=== PATIENT | male | born 1965 | race Caucasian/White ===

== ENCOUNTER → 2017-02-04 | Outpatient (CLI) | payer OTHER ==
[~2017-02-04] MED LIST: CYAN100020 PO; LISI20TA3 PO; MULT-506 PO; OMEG12006 PO; OMEP40CA41 PO; ONDA4TAB10 SL; PRLSR20 PO
--- NOTE | 2017-02-05 07:49 | EXERCISE STRESS TEST ---
DATE OF PROCEDURE: 02/04/2017. INDICATIONS FOR STRESS TESTING: Chest discomfort. This was a symptom limited maximal treadmill stress test performed on the Stanton protocol. During the test there were no symptoms of chest discomfort. The test was terminated due to fatigue and leg tiredness. The exercise duration was 9 minutes 30 seconds, the heart rate reached 169 beats per minute (102% of the predicted maximal heart rate). During the stress test ST depression was observed, the maximum ST depression occurred at peak exercise where 1.8 mm of slightly upsloping ST depression was present in lead 2. Close to that was also present in leads 3 and AVF and approaching 1 mm in V5. During recovery this ST depression quickly resolved, within 1 minute of recovery there was no ST depression either inferior or the lateral precordial leads. The patient remained on the machine for 6 minutes with no return of ST depression. There was no arrhythmia noted during the test. IMPRESSION: Abnormal stress test with development of significant ST depression, however there were no symptoms associated with it and there was very rapid resolution of the ST depression during recovery. This may indicate a false positive.
== END | disposition home or self-care (01) ==
LOC: C.CPL 09:23
PROVIDERS: ATTEND Physician Assistant
DX: I44.0 Atrioventricular block, first degree (principal); I10 Essential (primary) hypertension; R07.89 Other chest pain

== ENCOUNTER 2017-04-27 02:18 | Emergency (ER) | payer OTHER ==
[~2017-04-27] VITALS: Ht 180.3 cm; Wt 101.3 kg
[~2017-04-27 02:18] MED LIST changes: -CYAN100020 PO; -LISI20TA3 PO; -MULT-506 PO; -OMEP40CA41 PO; -ONDA4TAB10 SL
[2017-04-27 02:21] VITALS: TEMP 36.4; Ht 180.3 cm; Wt 101.3 kg
[2017-04-27] MEDS ORDERED: SODIUM CHLORIDE 0.9% 1000ML 1,000 ML IV STA (02:30)
[2017-04-27] MEDS ORDERED: ONDANSETRON INJ 2 MG/ML 2 ML VIAL IV STA ×2 (02:30→03:25)
[2017-04-27 02:32] VITALS: O2SAT 99
[2017-04-27] MEDS ORDERED: OMEP40CA41 PO (02:39)
[2017-04-27] MEDS ORDERED: LISI20TA3 PO (02:39)
[2017-04-27] MEDS ORDERED: MULT-506 PO (02:40)
[2017-04-27] MEDS ORDERED: CYAN100020 PO (02:40)
[2017-04-27 02:41] LABS: BASO % 0.3 %; BASO ABS # 0.03 K/uL (0-0.2); COMPLETE YES; HEMATOCRIT 45.1 % (42-52); IG% 0.6 %; LYMPH % 46.5 %; LYMPH ABS # 4.85 K/uL (1.2-3.4); MEAN CELL VOLUME 88.1 fL (80-100); MEAN CORPUSCULAR HEMOGLOBIN 30.9 pg (25-34); MEAN PLATELET VOLUME 9.3 fL (7.4-10.4); MONO % 8.4 %; NEUT % 42.2 %; PLATELET COUNT 303 K/uL (130-400); RED BLOOD COUNT 5.12 M/uL (4.7-6.1); WHITE BLOOD COUNT 10.42 K/uL (4.8-10.8)
--- NOTE | 2017-04-27 02:59 | EMERGENCY ROOM VISIT NOTE ---
History Report prepared by Felipe: Hai Aj Under the Supervision of: Dr. Mike Toro D.O. First contact with patient: 02:20 Chief Complaint: WEAKNESS Stated Complaint: WEAKNESS History of Present Illness The patient is a 51 year old male who presents to the Emergency [facility] after sudden onset vomiting and nausea this morning, that began shortly prior to arrival. The patient states that he woke up out of sleep this evening due to his nausea. He also complains of feeling like he was going to pass out, but he did not experience any syncope. He denies any associated chest pain, shortness of breath, headaches, or diarrhea. Source of History: patient Onset: Shortly ASSISTANT FINANCE MANAGER Position: other () Quality: other (Vomiting) Timing: other (Sudden Onset) Associated Symptoms: + nausea, No chest pain, No SOB Review of Systems See HPI for pertinent positives and negatives. A total of ten systems were reviewed and were otherwise negative. Past Medical & Surgical Medical Problems: (1) Hypertension Hypertension Family History Hypertension Social History Smoking Status: Never Smoker Drug Use: none Marital Status: Housing Status: lives with significant other Occupation Status: employed Current/Historical Medications Scheduled Cyanocobalamin (Vitamin B12), 1,000 MCG PO DAILY Lisinopril (Prinivil), 20 MG PO DAILY Multivitamin (Multivitamin), 1 TAB PO DAILY Lancaster-3 Fatty Acids ([place] 3), 1 CAP PO DAILY Omeprazole (Prilosec), 40 MG PO DAILY Allergies Coded Allergies: No Known Allergies (Unverified , 04/27/17) Physical Exam Vital Signs Date Time Temp Pulse Resp B/P (MAP) Pulse Ox O2 Delivery O2 Flow Rate FiO2 04/27/17 02:32 99 Room Air 04/27/17 02:28 71 04/27/17 02:21 36.4 67 18 124/92 95 Room Air Physical Exam GENERAL: Awake, alert, well-appearing, in no distress HENT: Normocephalic, atraumatic. Oropharynx unremarkable. EYES: Normal conjunctiva. Sclera non-icteric. NECK: Supple. No nuchal rigidity. FROM. No JVD. RESPIRATORY: Clear to auscultation. CARDIAC: Regular rate, normal rhythm. Extremities warm and well perfused. Pulses equal. ABDOMEN: Soft, non-distended. No tenderness to palpation. No rebound or guarding. No masses. RECTAL: Deferred. MUSCULOSKELETAL: Chest examination reveals no tenderness. The back is symmetrical on inspection without obvious abnormality. There is no CVA tenderness to palpation. No joint edema. LOWER EXTREMITIES: Calves are equal size bilaterally and non-tender. No edema. No discoloration. NEURO: Normal sensorium. No sensory or motor deficits noted. SKIN: No rash or jaundice noted. Medical Decision & Procedures Laboratory Results 04/27/17 02:15 Red Blood Count 5.12, Mean Corpuscular Volume 88.1, Mean Corpuscular Hemoglobin 30.9, Mean Corpuscular Hemoglobin Concent 35.0, Mean Platelet Volume 9.3, Neutrophils (%) (Auto) 42.2, Lymphocytes (%) (Auto) 46.5, Monocytes (%) (Auto) 8.4, Eosinophils (%) (Auto) 2.0, Basophils (%) (Auto) 0.3, Neutrophils # (Auto) 4.39, Lymphocytes # (Auto) 4.85, Monocytes # (Auto) 0.88, Eosinophils # (Auto) 0.21, Basophils # (Auto) 0.03 04/27/17 02:15 Test 04/27/17 02:15 White Blood Count 10.42 K/uL (4.8-10.8) Red Blood Count 5.12 M/uL (4.7-6.1) Hemoglobin 15.8 g/dL (14.0-18.0) Hematocrit 45.1 % (42-52) Mean Corpuscular Volume 88.1 fL (80-100) Mean Corpuscular Hemoglobin 30.9 pg (25-34) Mean Corpuscular Hemoglobin Concent 35.0 g/dl (32-36) Platelet Count 303 K/uL (130-400) Mean Platelet Volume 9.3 fL (7.4-10.4) Neutrophils (%) (Auto) 42.2 % Lymphocytes (%) (Auto) 46.5 % Monocytes (%) (Auto) 8.4 % Eosinophils (%) (Auto) 2.0 % Basophils (%) (Auto) 0.3 % Neutrophils # (Auto) 4.39 K/uL (1.4-6.5) Lymphocytes # (Auto) 4.85 K/uL (1.2-3.4) Monocytes # (Auto) 0.88 K/uL (0.11-0.59) Eosinophils # (Auto) 0.21 K/uL (0-0.5) Basophils # (Auto) 0.03 K/uL (0-0.2) RDW Standard Deviation 42.0 fL (36.4-46.3) RDW Coefficient of Variation 13.1 % (11.5-14.5) Immature Granulocyte % (Auto) 0.6 % Immature Granulocyte # (Auto) 0.06 K/uL (0.00-0.02) Anion Gap 10.0 mmol/L (3-11) Est Creatinine Clear Calc Drug Dose 94.1 ml/min Estimated GFR () 88.4 Estimated GFR (Non- 76.2 BUN/Creatinine Ratio 14.8 (10-20) Calcium Level 9.1 mg/dl (8.5-10.1) Magnesium Level 1.9 mg/dl (1.8-2.4) Total Bilirubin 0.6 mg/dl (0.2-1) Direct Bilirubin < 0.1 mg/dl (0-0.2) Aspartate Amino Transf (AST/SGOT) 20 U/L (15-37) Alanine Aminotransferase (ALT/SGPT) 31 U/L (12-78) Alkaline Phosphatase 92 U/L (45-117) Total Protein 7.3 gm/dl (6.4-8.2) Albumin 3.8 gm/dl (3.4-5.0) Lipase 85 U/L (73-393) Laboratory results reviewed by me Medications Administered Medications (Trade) Dose Ordered Sig/Ibis Route Start Time Stop Time Status Last Admin Dose Admin Ondansetron HCl (Zofran Inj) 4 mg NOW STAT IV 04/27/17 02:30 04/27/17 02:32 DC 04/27/17 02:41 4 MG Sodium Chloride 1,000 ml @ 999 mls/hr Q1H1M STAT IV 04/27/17 02:30 04/27/17 03:30 04/27/17 02:41 999 MLS/HR ED Course 0226: The patient was evaluated in room B7. A complete history and physical exam was performed. 0230: Ordered Sodium Chloride 1000 mL @ 999 mL/hr IV, Zofran 4 mg IV. 0324: Ordered Potassium Chloride 40 meq PO, Zofran 4 mg IV. 0327: I reevaluated the patient. Discussed results and discharge instructions: he verbalized understanding and agreement. The patient is ready for discharge. Medical Decision Differential Diagnosis includes; gastritis, gastroenteritis, dehydration, electrolyte imbalance. Repeat exam, mild nausea; no pain; discussed eval with patient and family at 330am Impression Primary Impression: Vomiting Additional Impressions: Gastritis Hypokalemia Scribe Attestation The scribe's documentation has been prepared under my direction and personally reviewed by me in its entirety. I confirm that the note above accurately reflects all work, treatment, procedures, and medical decision making performed by me. Departure Information Dispostion Home / Self-Care Prescriptions Ondasetron Odt (ZOFRAN ODT) 4 Mg Tab 4 MG SL Q6H for Nausea, #10 TAB Prov: Mike Toro, DO 04/27/17 Referrals Tamika Edmonds PA-C (PCP) Patient Instructions ED Nausea Vomiting, My [facility] Problem Qualifiers
[2017-04-27 03:04] LABS: ALT/SGPT 31 U/L (12-78); AST/SGOT 20 U/L (15-37); BLOOD UREA NITROGEN 16 mg/dl (7-18); BUN/CREATININE RATIO 14.8 (10-20); CALCIUM 9.1 mg/dl (8.5-10.1); CARBON DIOXIDE 27 mmol/L (21-32); CHLORIDE 103 mmol/L (98-107); GLUCOSE 134 mg/dl (70-99); MAGNESIUM 1.9 mg/dl (1.8-2.4); SODIUM 140 mmol/L (136-145)
[2017-04-27 03:07] LABS: ALKALINE PHOSPHATASE 92 U/L (45-117)
[2017-04-27] MEDS ORDERED: POTASSIUM CHLORIDE 10 MEQ TABCR PO STA ×2 (03:15→03:24)
[2017-04-27] MEDS ORDERED: ONDA4TAB10 SL (03:30)
[2017-04-27 03:52] VITALS: BP 124/92; PULSE 73; O2SAT 99
== END 2017-04-27 03:53 | disposition home or self-care (01) ==
LOC: EDBD 02:18 → C.EDB 02:19
DX: K29.70 Gastritis, unspecified, without bleeding (principal); E87.6 Hypokalemia; R53.1 Weakness; R11.10 Vomiting, unspecified; I10 Essential (primary) hypertension

== ENCOUNTER 2019-06-21 06:59 | Observation (INO) ==
--- NOTE | 2019-06-15 10:46 | Anesthesiology Consultation ---
Date of Service June 15, 2019 Assessment & Plan (1) Encounter for preadmission testing: Chart Review Chart Review: Acceptable Risk for Surgery and Patient NOT seen in Pre Admission Testing Consults Requested none History Surgery Operation Date: 06/21/19 08:10 Proposed Procedures p Laparoscopic Resection Mass Right Lower Quadrant Mass, Possible Open, Possible Bowel Resection - Pascual Alfonso MD Height/Weight Height: 5 ft 11 in Weight: 102.512 kg Allergies Allergy/AdvReac Type Severity Reaction Status Date / Time heparin Allergy Severe BRADYCARDIA/FLUSHED Verified 06/14/19 15:33 ALL OVER Medications Home Medications Medication Instructions Recorded Confirmed Last Taken apixaban 5 mg tablet 5 mg PO BID 06/06/19 06/14/19 Unknown multivitamin 1 tab PO QAM 06/06/19 06/14/19 Unknown omega-3 fatty acids 1,000 mg 1,000 mg PO QAM 06/06/19 06/14/19 Unknown capsule ascorbic acid (vitamin C) [Vitamin 1 g PO QAM 06/14/19 06/14/19 Unknown C] cyanocobalamin (vitamin B-12) 5,000 mcg PO QAM 06/14/19 06/14/19 Unknown esomeprazole magnesium [Nexium] 20 mg PO QAM 06/14/19 06/14/19 Unknown flaxseed oil 1,000 mg PO QAM 06/14/19 06/14/19 Unknown lisinopril 10 mg PO QAM 06/14/19 06/14/19 Unknown red yeast rice 600 mg PO BID 06/14/19 06/14/19 Unknown turmeric 400 mg PO QAM 06/14/19 06/14/19 Unknown Past Medical History Medical History Abdominal mass GERD (gastroesophageal reflux disease) Hiatal hernia Hx of pancreatitis 09/2018 Hypertension MVP (mitral valve prolapse) Osteoarthritis Pulmonary embolism S/P PAMELA AUGUST 2018 (CURRENTLY ON ELIQUIS) Past Family History Family History Uncle Family hx of colon cancer Past Surgical History Surgical History Cyst GROIN CYST EXCISION History of cardiac cath 2005 (NO STENTS) WAS [place]ING IN [place] History of cholecystectomy History of colonoscopy History of esophagogastroduodenoscopy (EGD) History of tonsillectomy Social History Smoking Status: Former smoker Do You Dip or Chew Tobacco: No Smoking End Date: QUIT EARLY Hx Alcohol Use: Yes alcohol intake frequency: holidays/special occasions only Hx Substance Use: No substance use type: does not use Testing Laboratory Results Laboratory Tests 06/08/19 06/08/19 10:30 10:30 WBC 9.58 Hgb 15.6 Hct 43.4 Plt Count 286 Sodium 138 Potassium 3.8 Chloride 103 Carbon Dioxide 28 BUN 18 Creatinine 1.07 Glucose 111 H Electrocardiogram Date: 06/14/19 Findings: + SB @ (47), + IL (septal infarct ), + no change from (27 Apr 2017) and + pertinent finding (1st degree av block) Chest X-Ray Date: 06/14/19 Findings: + NAD
[~2019-06-21 06:59] MED LIST changes: +LR 15ML/HR IV SCH; -OMEG12006 PO; -PRLSR20 PO
[2019-06-21] MEDS ORDERED: fentaNYL citrate 100 MCG/2 ML VIAL ONE ×3 (08:08→12:09)
[2019-06-21] MEDS ORDERED: MIDAZOLAM HCL 1 MG/ML 2ML VIAL ONE (08:08)
[2019-06-21] MEDS ORDERED: ONDANSETRON INJ 2 MG/ML 2 ML VIAL IV PRN ×2 (09:31→13:53)
[2019-06-21] MEDS ORDERED: ATROPINE SULFATE 0.1 MG/ML 10ML SYR IV PRN (09:31)
[2019-06-21] MEDS ORDERED: KETOROLAC 30 MG/ML VIAL IV PRN (09:31)
[2019-06-21] MEDS ORDERED: LABETALOL HCL IV 5 MG/ML 20ML IV PRN (09:31)
--- NOTE | 2019-06-21 09:35 | History & Physical Bridge Note ---
Date of Service June 21, 2019 History & Physical Bridge Note I have examined the patient, reviewed the History & Physical and in the interval since the performance of the History & Physical I have noted the following changes of clinical significance: no changes noted all questions answered states lately had had some dis SO at bedsidecomfort rlq
[2019-06-21] MEDS ORDERED: ACETAMINOPHEN 1000 MG/100 ML IV IV ONE (09:44)
[2019-06-21] MEDS ORDERED: BUPIVACAINE 0.5 % 5 MG/1 ML MPF 30ML VIAL ONE (09:51)
[2019-06-21] MEDS ORDERED: LIDOCAINE HCL 2% 2 ML VIAL/AMP(20MG/ML) INFIL ONE (10:35)
[2019-06-21] MEDS ORDERED: PROPOFOL IV EMULSION 10 MG/ML 20 ML VIAL IV ONE (10:35)
[2019-06-21] MEDS ORDERED: DEXAMETHASONE SOD INJ 4 MG/ML VIAL ONE (10:35)
[2019-06-21] MEDS ORDERED: NEOSTIGMINE METHYLSULFATE 5 MG/5 ML SYR ONE (10:35)
[2019-06-21] MEDS ORDERED: GLYCOPYRROLATE 0.2 MG/ML VIAL ONE (10:35)
[2019-06-21] MEDS ORDERED: ONDANSETRON INJ 2 MG/ML 2 ML VIAL ONE (10:35)
[2019-06-21] MEDS ORDERED: HYDROmorphone INJ 2 MG/ML SYR/VIAL ONE (10:42)
[2019-06-21] MEDS ORDERED: LARYING-O-JET KIT (LTA) ONE (11:49)
--- NOTE | 2019-06-21 12:10 | Post Operative Brief Note ---
PG Immediate Post Op with CF Date of Surgery June 21, 2019 Pre & Post Diagnosis Operation Date: 06/21/19 09:45 Pre-Op Diagnosis: Right Lower Quadrant Abdominal Mass Post-Op Diagnosis: Right Lower Quadrant Abdominal Mass Procedure Operation Date: 06/21/19 09:45 Actual Procedures p Laparoscopy, Open Right Lower Quadrant Mass Resection, Appendectomy(Right) - Pascual Alfonso MD Surgeon Pascual Alfonso MD Hse Specialist b kartik walker Estimated Blood Loss 15 Findings Consistent with Post-Op Diagnosis Specimens Specimen Description: Frozen 1. Mesenteric Node 2. Omental Implant Permanent A. Appendix 1. Urine culture Drains Benton Catheter
--- NOTE | 2019-06-21 12:19 | Operative Report ---
Post Operative Report Pre & Post Diagnosis Operation Date: 06/21/19 09:45 Pre-Op Diagnosis: Right Lower Quadrant Abdominal Mass Post-Op Diagnosis: Right Lower Quadrant Abdominal Mass Procedure Operation Date: 06/21/19 09:45 Actual Procedures p Laparoscopy, Open Right Lower Quadrant Mass Resection, Appendectomy(Right) - Pascual Alfonso MD Patient was brought into the operating theater supine position general endotracheal anesthesia Benton catheter inserted the abdomen was prepped Betadine solution properly draped systemic antibiotics given timeout was had patient was identified point we made a small linear incision above the umbilicus above the transverse incision that the patient had lap chidi Veress needle followed followed by CO2 followed by 5 mm trocar followed by the scope point of entry inspected no injury identified we looked at the abdominal cavity first and the parietoperitoneum there was no evidence of any implants liver was free of any pathology there were no adhesions from previous cholecystectomy the omentum was free of any implants the peritoneum was similarly loose there were no hernias point was able to identify the cecum placed a 5 mm right upper quadrant port with preemptive local analgesic elevated the cecum and there is no obvious pathology the appendix appeared to be at the base grossly normal we at this point place a 5 mm left lower quadrant port placed the camera in that area and then start milking around from the cecum first identified the appendix which was throughout was grossly normal we milked the small bowel looked at the mesenteric for about 3-1/2 4 feet there was no definite evidence evidence of any nodularity that striking except we saw multiple areas that felt like there was some possible pathology in the omentum and the mesentery since the patient has significant amount of fatty tissue we opened a few of these areas by first incising the peritoneum and once we identified the most of this was just indeed fat there were a few areas that once we had freed it up we did find a lymph nodes but they were probably nonpathological probably 0.5 to 0.7cm once we had performed this I felt at this time that I did not see anything abnormal on the outside of the was not able to definitively identify at least by inspection and what I could steal laparoscopically any mass in the omentum since the patient was reading that I had an omental mass 7 cm at the time that he had his laparoscopic cholecystectomy and then increase to about 1.7 cm I elected to make a linear incision up and down the sufficient enough to insert my hand and there we at this point I went back from the cecum exposing the appendix more thoroughly by incising the white line of Toldt then working back palpating throughout the small bowel to about 4 feet there was nothing in the lumen then palpated the mesentery and similarly we felt the same thing with a laparoscopically multiple areas of what appeared to be letter to centimeter masses but mostly was fatty tissue we take about 3 biopsies of these areas and mostly the lymph nodes was minimal at this point I elected then to look at the omentum which we did as we also mobilized the right side of the omentum which was a right lower quadrant area of the right flank area I could feel hard mass as we brought the side of the wound we could feel a indurated area in the omentum probably about 2 cm in size as the freed this up around that we made a small opening in it and small amount of purulent drainage came out and I could see at the bottom there is that there was a bilirubinate stone probably about 3 mm in size with surrounding chronic inflammation we removed this and total incising the omentum around the area. Once this had been accomplished and hemostasis was satisfactory thinking was that trying to patch together the sequence of events the gentleman had a CAT scan prior to having his laparoscopic cholecystectomy which is acutely done in [place] and a CAT scan revealed a point centimeter right lower quadrant mesenteric mass as he had a follow-up CAT scan on that which was done after his goals but gallbladder just about a month or so ago the mass had gone to about 2 cm so I suspect the initial CAT scan showed a lymph node someplace in the mesentery that probably is the same and this new mass was indeed a granuloma around the foreign body from a dropped gal lstone during his laparoscopic cholecystectomy having said this I did not this time I elected to take out the appendix even though grossly was normal there is a remote possibility that we are still missing some of the mesoappendix ligated with 2-0 silk base of the appendix was resected approximately 1 cm from its base the mucosa was bovied and this was inverted a pursestring of 3-0 silk I did send some lymph nodes that we had removed as well centimeter for frozen section and they were nonpathological as we suspected this point the area was checked hemostasis appear satisfactory we closed the fascia with interrupted #1 PDS [id number] subcutaneous tissue 2-0 Vicryl and karen for skin edges dressing was applied procedure was tolerated well estimated blood loss 15 cc addendum Sada walker was present throughout the procedure and helped with exposure retraction and wound closure Surgeon Pascual Alfonso MD Asic Engineer b kartik walker Estimated Blood Loss 15 Findings Consistent with Post-Op Diagnosis Specimens appendix, omental mass mesenteric biopsy Description of Procedure merda I attest to the content of the Intraoperative Record and any orders documented therein. Any exceptions are noted below.
[2019-06-21] MEDS: fentaNYL citrate 100 MCG/2 ML VIAL IV PRN ×4 (12:35→12:50)
[2019-06-21] MEDS ORDERED: HYDROmorphone INJ 1 MG/ML SYRINGE ONE (12:58)
[2019-06-21] MEDS: HYDROmorphone INJ 1 MG/ML SYRINGE IV PRN ×4 (12:58→13:13)
--- NOTE | 2019-06-21 13:26 | Anesthesiology Progress Note ---
Date of Service June 21, 2019 Anesthesia Post Procedure Vital Signs Vital Signs: Temp Pulse Pulse Resp BP BP Pulse Ox 06/21/19 13:15 63 17 127/82 100 06/21/19 13:05 64 11 L 124/81 100 06/21/19 12:55 56 L 10 L 127/87 99 06/21/19 12:45 56 L 12 126/85 06/21/19 12:35 57 L 13 129/89 06/21/19 12:25 55 L 11 L 132/94 06/21/19 12:15 36.1 C L 61 16 128/88 100 06/21/19 07:49 36.7 C 50 L 20 144/93 H 100 Pain Intensity Bilateral Abdomen: Pain Intensity: 7 Transfer of Care Handoff Completed per policy Notes Mental Status: alert / awake / arousable Patient Amnestic to Procedure: Yes Nausea / Vomiting: adequately controlled Pain: adequately controlled Airway Patency, RR, SpO2: stable & adequate BP & HR: stable & adequate Hydration State: stable & adequate Anesthetic Complications: no major complications apparent
[2019-06-21] MEDS: MoRPHine SULFATE 2 MG/ML CARP IV PRN ×2 (14:30→15:23)
[2019-06-21] MEDS: LACTATED RINGER'S 1,000 ML IV SCH ×2 (14:31→22:35)
[2019-06-21] MEDS: MoRPHine SULFATE 4 MG/ML 1 ML CARP\\VIAL IV PRN (19:50)
[2019-06-21] MEDS: OXYCODONE/ACETAMINOPHEN 5mg/325mg TAB PO PRN ×2 (21:13→22:02)
[2019-06-22] MEDS: MoRPHine SULFATE 4 MG/ML 1 ML CARP\\VIAL IV PRN ×2 (00:21→03:10)
[2019-06-22] MEDS: OXYCODONE/ACETAMINOPHEN 5mg/325mg TAB PO PRN ×3 (05:04→14:38)
[2019-06-22 06:55] LABS: Eosinophils # (auto) 0.01 K/uL (0-0.5); Eosinophils % (auto) 0.1 %; Hematocrit (blood only) 38.5 % (42-52); Hemoglobin 13.4 g/dL (14.0-18.0); Immature Granulocytes # (auto) 0.06 K/uL (0.00-0.02); Immature Granulocytes % (auto) 0.4 %; Lymphocytes # (auto) 1.64 K/uL (1.2-3.4); Mean Corpuscular Hemoglobin 31.2 pg (25-34); Mean Corpuscular Hgb Conc 34.8 g/dL (32-36); Mean Corpuscular Volume 89.7 fL (80-100); Monocytes # (auto) 1.34 K/uL (0.11-0.59); Neutrophils % (auto) 79.5 %; Platelet Count 231 K/uL (130-400); RDW Coefficient of Variation 13.4 % (11.5-14.5); Red Blood Count 4.29 M/uL (4.7-6.1); White Blood Count 14.95 K/uL (4.8-10.8)
--- NOTE | 2019-06-22 07:13 | Surgery Progress Note ---
Date of Service June 22, 2019 Assessment & Plan (1) Abdominal mass: Operative findings were discussed with the patient including that the localized area of foreign body granuloma small abscess may been what was seen on the repeat CAT scan this most likely was the site of a dropped gallstone from a cholecystectomy that created this image on a follow-up CAT scan that was done to do any changes on a 7 mm right mesenteric mass However to be 100% sure that we are not missing anything significant I recommended to him and his yesterday we will repeat the CAT scan approximately 2 months He certainly can be discharged later today I discussed with him wound care diet activity and meds And follow-up in the office in 1 week to remove his karen Present on Admission?: Yes Subjective No complaints this morning stated last evening after he had received some morphine as he was standing side of the bed lightheaded He stated that he is voiding fine at the expected abdominal discomfort Physical Exam Physical Exam: Alert coherent stress Abdomen is benign dressing is intact less vitals are noted Results & Data Vital Signs (Past 12 Hours) Vital Signs Temp Pulse Pulse Resp BP Pulse Ox 06/22/19 03:07 36.7 C 70 16 130/77 97 06/21/19 22:39 36.6 C 61 16 128/78 96 PG Care Time/CCT Total # of Minutes Spent Total Time Spent with Patient: Total time spent is greater than 50% in coordination of care (as documented) at patient's floor/unit and/or counseling patient:
[2019-06-22 07:34] LABS: BUN Creatinine Ratio 15.6 (10-20); Calcium 8.6 mg/dl (8.5-10.1); Creatinine Clr Calc Pharmacy 105.4 ml/min; Est GFR (African American) 102.7; Est GFR (Non-African American) 88.6; Potassium 3.8 mmol/L (3.5-5.1)
[2019-06-22] MEDS: LACTATED RINGER'S 1,000 ML IV SCH (08:47)
--- NOTE | 2019-06-22 08:55 | Anesthesiology Progress Note ---
Date of Service June 22, 2019 Anesthesia Post Procedure Vital Signs Vital Signs: Temp Pulse Pulse Pulse Pulse Resp BP 06/22/19 07:14 36.7 C 56 L 18 116/69 06/22/19 03:07 36.7 C 70 16 130/77 06/21/19 22:39 36.6 C 61 16 128/78 06/21/19 19:05 36.6 C 81 16 125/78 06/21/19 16:49 36.6 C 73 16 112/74 06/21/19 15:55 36.5 C 63 16 108/78 06/21/19 14:48 36.5 C 73 16 124/74 06/21/19 14:15 36.6 C 68 16 133/82 06/21/19 13:45 36.7 C 69 16 127/86 06/21/19 13:35 58 L 14 123/79 06/21/19 13:25 36.6 C 69 16 127/78 06/21/19 13:15 63 17 127/82 06/21/19 13:05 64 11 L 124/81 06/21/19 12:55 56 L 10 L 127/87 06/21/19 12:45 56 L 12 126/85 06/21/19 12:35 57 L 13 129/89 06/21/19 12:25 55 L 11 L 132/94 06/21/19 12:15 36.1 C L 61 16 128/88 Pulse Ox 06/22/19 07:14 97 06/22/19 03:07 97 06/21/19 22:39 96 06/21/19 19:05 96 06/21/19 16:49 97 06/21/19 15:55 98 06/21/19 14:48 97 06/21/19 14:15 96 06/21/19 13:45 95 06/21/19 13:35 99 06/21/19 13:25 99 06/21/19 13:15 100 06/21/19 13:05 100 06/21/19 12:55 99 06/21/19 12:45 100 06/21/19 12:35 100 06/21/19 12:25 100 06/21/19 12:15 100 Pain Intensity Bilateral Abdomen: Pain Intensity: 7 Notes Mental Status: alert / awake / arousable and participated in evaluation Patient Amnestic to Procedure: Yes Nausea / Vomiting: adequately controlled Pain: adequately controlled Airway Patency, RR, SpO2: stable & adequate BP & HR: stable & adequate Hydration State: stable & adequate Anesthetic Complications: no major complications apparent and Pt Satisfied with anesthetic care
[2019-06-22] MEDS ORDERED: lisinopriL 10 MG TAB PO SCH (09:00)
[2019-06-22] MEDS ORDERED: KETOROLAC 30 MG/ML VIAL IV ONE (10:35)
[2019-06-22] MEDS ORDERED: PANTOprazole 40 MG TAB PO STA (10:35)
--- NOTE | 2019-06-24 10:13 | Discharge Summary ---
Date of Service June 24, 2019 Principal Diagnosis Omental foreign body granuloma Discharge Exam Gastrointestinal (Abdomen) Inspection/Auscultation: + abdominal surgical incision (clean, dry); abdomen not distended Percussion/Palpation: abdomen soft Discharge Data Allergies Allergy/AdvReac Type Severity Reaction Status Date / Time heparin Allergy Severe BRADYCARDIA/FLUSHED Verified 06/14/19 15:33 ALL OVER Procedures Performed Operation Date: 06/21/19 09:45 Actual Procedures p Laparoscopy, (Right) - Pascual Alfonso MD s Appendectomy(Right) - Pascual Alfonso MD p Open Right Lower Quadrant Mass Resection - Pascual Alfonso MD Hospital Course (1) Abdominal mass: 53 y/o male with an enlarging mass in the the right lower quadrant mesentery was taken to the operating for diagnostic laparoscopy. We were unable to localize the area and converted to a mini-laparotomy to biopsy a mesenteric lymph node, we then identified a small abscess/granuloma in the omentum which contained a gallstone. The size of this corresponded that seen on CT and no other abnormalities were identified. Incidental appendectomy was performed. He was transferred to the surgical [facility] for overnight observation. in the morning he was tolerating regular diet and oral analgesics. He was stable for discharge that afternoon and will resume Xarelto one day after discharge. Total Time Total Time Spent Total Time Spent (In Minutes): 15 Discharge Plan Discharge Items Patient Disposition: Home - Self-Care Reason For Visit: Right Lower Quadrant Abdominal Mass Discharge Diagnosis: biopsy of abdominal mass Activity: As commented below Lifting: No more than 10 pounds Bathing Comment: ok to shower Driving/Machine Use: when pain free Non-emergency contact: Surgeon Call non-emergency contact if: you have any medication questions, your pain is not controlled, you have a fever, your temperature is above 101.5 and your wound has increased redness Follow-up/Referrals: Pascual Alfonso MD [Surgeon] - (In 1 week, call if you do not have an appt) Tamika Edmonds PA-C [Primary Care Provider] - Diet: Regular Addtl Attending Provider Instructions: You can restart Eliquis morning Pending Studies at Discharge: No Stand-Alone Forms: My [facility] Medications and DC Order Prescriptions: New oxycodone-acetaminophen [Percocet] 5-325 mg tablet 1 - 2 tab PO Q4H MDD 6 tabs PRN (Reason: pain, initial therapy) Qty: 18 RF: 0 Continued multivitamin 1 tab PO QAM RF: 0 omega-3 fatty acids 1,000 mg capsule 1,000 mg PO QAM RF: 0 ascorbic acid (vitamin C) [Vitamin C] 1,000 mg Tablet 1 g PO QAM RF: 0 flaxseed oil 1,000 mg Capsule 1,000 mg PO QAM RF: 0 lisinopril 10 mg Tablet 10 mg PO QAM RF: 0 esomeprazole magnesium [Nexium] 20 mg Capsule,Delayed Release(Dr/Ec) 20 mg PO QAM RF: 0 red yeast rice 600 mg Tablet 600 mg PO BID RF: 0 turmeric 400 mg Capsule 400 mg PO QAM RF: 0 cyanocobalamin (vitamin B-12) 5,000 mcg Capsule 5,000 mcg PO QAM RF: 0 Discontinued Eliquis 5 mg tablet 5 mg PO BID RF: 0 Discharge Orders: Discharge Order (Routine); Ordered 06/22/19 Ordered By: Efe Espinal Admission Data Admit Date/Time: 06/21/19 12:37 Attending Provider: Pascual Alfonso Admit Provider: Pascual Alfonso Primary Care Provider: Tamika Edmonds Other Interventions: Discharge Summary Assessment (RN) Last Done: 06/22/19 14:20 DC Date/Time DO NOT enter until pt leaves facility: 06/22/19 15:20
== END 2019-06-22 15:20 | disposition home or self-care (01) ==
LOC: ASU 06:59 → INTOOBSV 12:37 → 3N 12:37